=== PATIENT | male | born 1970 | race Caucasian/White ===

== ENCOUNTER 2017-07-29 18:37 | Emergency (ER) | payer OTHER ==
[2017-07-29] MEDS ORDERED: Dextrose 50% Abboject 50 ML SYRINGE ONE (18:50)
[2017-07-29 19:23] LABS: Hematocrit 47.6 % (42.0-52.0); Mean Platelet Volume 6.1 fL (7.4-10.4); Red Blood Cell (RBC) Count 4.85 mill/uL (4.70-6.10); White Blood Cell (WBC) Count 5.6 thou/uL (4.8-10.8)
[2017-07-29 19:39] LABS: ALT (SGPT) 18 U/L (8-55); AST (SGOT) 16 U/L (5-34); Alkaline Phosphatase 100 U/L (40-150); Anion Gap 15 mmol/L (10-20); BUN (Urea Nitrogen) 9 mg/dL (8.9-20.6); Bilirubin, Total 0.2 mg/dL (0.2-1.2); Calc. Creatinine Clearance 0 mL/min (70-130); Calcium 10.1 mg/dL (7.8-10.44); Carbon Dioxide 28 mmol/L (22-29); Chloride 103 mmol/L (98-107); Estimated GFR-MDRD Greater than 90; Globulin 3.1 g/dL (2.4-3.5); Protein, Total 7.7 g/dL (6.0-8.3)
[2017-07-29 19:43] LABS: Band 2 % (5-11); Neutrophil 70 % (42-75); Reactive Lymphocytes 2 % (0-10)
[2017-07-29] MEDS ORDERED: Hyaluronidase, Ovine 200 UNITS/ML VIAL SC SCH (20:30)
== END 2017-07-29 21:48 | disposition home or self-care (01) ==
LOC: ERS 18:37
DX: E10.649 Type 1 diabetes mellitus with hypoglycemia without coma (principal); T80.89XA Other complications following infusion, transfusion and therapeutic injection, initial encounter; E78.5 Hyperlipidemia, unspecified; I10 Essential (primary) hypertension
CPT/HCPCS: 36416; 80053; 85025; 93005; 96372; 96374; J3471

== ENCOUNTER 2022-08-09 20:02 | Emergency (ER) | payer OTHER ==
[2022-08-09 20:58] LABS: #Basophils 0.1 thou/uL (0.0-0.2); #Eosinphils 0.1 thou/uL (0.0-0.7); #Lymphocytes 1.3 thou/uL (1.20-3.40); #Monocytes 0.3 thou/uL (0.11-0.59); #Neutrophils 6.7 thou/uL (1.40-6.50); %Basophils 0.9 % (0.0-1.0); %Eosinophils 0.8 % (0.0-10.0); %Lymphocytes 15.8 % (21.0-51.0); %Monocytes 3.3 % (0.0-10.0); %Neutrophils 79.2 % (42.0-75.0); Hemoglobin 14.1 g/dL (14.0-18.0); Mean Corpuscular HGB CONC 34.7 g/dL (32.0-36.0); Mean Corpuscular Hemoglobin 34.3 pg (27.0-31.0); Mean Corpuscular Volume 98.7 fL (78.0-98.0); Mean Platelet Volume 6.9 fL (7.4-10.4); Platelet Count 208 thou/uL (130-400); Red Blood Cell (RBC) Count 4.11 mill/uL (4.70-6.10); White Blood Cell (WBC) Count 8.4 thou/uL (4.8-10.8)
[2022-08-09 22:07] LABS: ALT (SGPT) 16 U/L (8-55); AST (SGOT) 12 U/L (5-34); Albumin 4.5 g/dL (3.5-5.0); Alkaline Phosphatase 181 U/L (40-110); Anion Gap 14 mmol/L (10-20); BUN (Urea Nitrogen) 10 mg/dL (8.9-20.6); Bilirubin, Total 0.3 mg/dL (0.2-1.2); Calc. Creatinine Clearance 0 mL/min (70-130); Calcium 9.8 mg/dL (7.8-10.44); Carbon Dioxide 27 mmol/L (22-29); Chloride 99 mmol/L (98-107); Estimated GFR 91; Globulin 2.7 g/dL (2.4-3.5); Glucose 234 mg/dL (70-105); Protein, Total 7.2 g/dL (6.0-8.3); Sodium 136 mmol/L (136-145)
== END 2022-08-09 21:23 | disposition home or self-care (01) ==
LOC: ERS 20:02
DX: E10.649 Type 1 diabetes mellitus with hypoglycemia without coma (principal); I10 Essential (primary) hypertension; E78.5 Hyperlipidemia, unspecified
CPT/HCPCS: 36415; 36416; 80053; 85025; 93005

== ENCOUNTER 2023-07-02 13:16 | Inpatient (IN) | payer SELFPAY ==
[2023-07-02 14:07] LABS: #Monocytes 0.6 thou/uL (0.11-0.59); #Neutrophils 10.7 thou/uL (1.40-6.50); %Basophils 0.1 % (0.0-1.0); %Lymphocytes 10.2 % (21.0-51.0); %Monocytes 4.5 % (0.0-10.0); %Neutrophils 84.3 % (42.0-75.0); Hematocrit 44.5 % (42.0-52.0); Hemoglobin 14.9 g/dL (14.0-18.0); Mean Corpuscular HGB CONC 33.5 g/dL (32.0-36.0); Mean Corpuscular Hemoglobin 34.5 pg (27.0-31.0); Mean Platelet Volume 10.4 fL (7.4-10.4); Platelet Count 226 10x3/uL (130-400); RBC Distribution Width 12.4 % (11.5-14.5); Red Blood Cell (RBC) Count 4.32 mill/uL (4.70-6.10); White Blood Cell (WBC) Count 12.6 10x3/uL (4.8-10.8)
[2023-07-02 14:23] LABS: ALT (SGPT) 583 U/L (8-55); AST (SGOT) 971 U/L (5-34); Albumin 4.4 g/dL (3.5-5.0); Alkaline Phosphatase 309 U/L (40-110); Anion Gap 35 mmol/L (10-20); BUN (Urea Nitrogen) 38 mg/dL (8.9-20.6); Bilirubin, Total 6.2 mg/dL (0.2-1.2); Calc. Creatinine Clearance 0 mL/min (70-130); Calcium 9.1 mg/dL (7.8-10.44); Carbon Dioxide 11 mmol/L (22-29); Chloride 77 mmol/L (98-107); Estimated GFR 27; Globulin 2.9 g/dL (2.4-3.5); Magnesium 2.3 mg/dL (1.6-2.6); Protein, Total 7.3 g/dL (6.0-8.3)
[2023-07-02 14:35] LABS: Glucose 1084 mg/dL (70-105); Potassium 7.4 mmol/L (3.5-5.1); Sodium 116 mmol/L (136-145)
[2023-07-02] MEDS ORDERED: INSULIN REGULAR IN 0.9 % NACL 100 UNITS/100 ML BAG ONE (14:36)
[2023-07-02] MEDS ORDERED: Calcium Chloride 1 GM/10 ML Abboject SYRINGE ONE ×2 (14:36→14:45)
[2023-07-02] MEDS ORDERED: Insulin Regular 300 UNITS/3 ML VIAL ONE (14:36)
[2023-07-02] MEDS ORDERED: CALCIUM GLUC 1 GM/NS 50 ML BAG ONE (14:45)
[2023-07-02] MEDS ORDERED: Sodium Bicarb 50 MEQ/50 ML Abboject 8.4% SYRINGE ONE (14:46)
[2023-07-02 14:51] LABS: Troponin I 92.089 ng/mL (< 0.028)
[2023-07-02 14:59] LABS: Lipase 10 U/L (8-78); Phosphorus 8.6 mg/dL (2.3-4.7)
[2023-07-02] MEDS ORDERED: Heparin 25,000 units/D5W 500 ML ONE (15:04)
[2023-07-02 15:08] LABS: Analyzer IN Cardio ER; Base Excess -23.2 mEq/L (-2.0 to +3.0); Calcium, Ionized (venous) 1.22 mmol/L (1.16-1.32); Chloride (VBG) 86 mmol/L (98-106); Hematocrit-VBG 44 % (42.0-52.0); Sodium 126.3 mmol/L (133-146)
[2023-07-02 15:11] LABS: pH (venous) 6.973 (7.32-7.43)
[2023-07-02 15:12] LABS: Actual Bicarbonate (HCO3v) 7.9 mEq/L (22-28); Potassium (VBG) 6.21 mmol/L (3.70-5.30)
[2023-07-02] MEDS ORDERED: Ondansetron PF 4 MG/2 ML Vial ONE (15:34)
[2023-07-02] MEDS ORDERED: cefTRIAXone (ROCEPHIN) 2 GM VIAL ONE (15:34)
[2023-07-02] MEDS ORDERED: Doxycycline 100 MG in Sodium Chloride 0.9% 100 ML IVPB SCH (15:45)
[2023-07-02 16:02] LABS: Potassium 6.1 mmol/L (3.5-5.1)
[2023-07-02] MEDS ORDERED: Electrolyte Replacement Protocol 1 EACH IVPB ONE (16:03)
[2023-07-02] MEDS ORDERED: Sodium Chloride 0.9% 1,000 ML IV PRN ×4 (16:03)
[2023-07-02] MEDS ORDERED: Dextrose 50% Abboject 50 ML SYRINGE SLOW IVP PRN (16:03)
[2023-07-02] MEDS ORDERED: NS 0.9% w/ 20 MEQ KCL 1,000 ML IV PRN ×2 (16:03)
[2023-07-02] MEDS ORDERED: Dextrose 5 %-0.45 % NaCl 1,000 ML IV PRN (16:03)
[2023-07-02] MEDS ORDERED: Sodium Bicarb 50 MEQ/50 ML Abboject 8.4% SYRINGE IVP SCH (16:15)
[2023-07-02] MEDS ORDERED: HUMULIN R 100 UNITS in Sodium Chloride 0.9% 100 ML IVPB SCH (16:15)
[2023-07-02 16:44] LABS: Bacteria/HPF None Seen HPF (None Seen); Bilirubin Negative (Negative); Blood, Urine 2+ (Negative); Clarity Clear (Clear); Glucose, Urine (Dipstick) Greater than 1000 mg/dL (Negative); Ketone, Urine 20 mg/dL (Negative); Leukocyte Negative Leu/uL (Negative); Nitrite Negative (Negative); Protein, Urine (Dipstick) 10 mg/dL (Neg-Trace); RBC/HPF None Seen HPF (0-3); Specific Gravity, Urine 1.026 (1.002-1.036); Squamous Epithelial 0-3 HPF (0-3); Urobilinogen Normal mg/dL (Less than 2); WBC/HPF 0-3 HPF (0-3)
[2023-07-02 17:20] LABS: SARS-CoV-2 NAA Rapid Test Not Detected (NotDetected)
[2023-07-02 17:24] LABS: Base Excess -16.4 mEq/L (-2.0 to +3.0); Calcium, Ionized (venous) 1.34 mmol/L (1.16-1.32); Chloride (VBG) 89 mmol/L (98-106); Hematocrit-VBG 43 % (42.0-52.0); Hemoglobin (Hb) 14.7 g/dL (13.1-17.2); Potassium (VBG) 5.63 mmol/L (3.70-5.30); Sodium 128.5 mmol/L (133-146)
[2023-07-02 17:27] LABS: pH (venous) 7.129 (7.32-7.43)
[2023-07-02] MEDS ORDERED: Sodium Bicarb 50 MEQ/50 ML VIAL ONE (17:32)
[2023-07-02 17:49] LABS: Glucose 789 mg/dL (70-105)
[2023-07-02 17:53] LABS: Anion Gap 30 mmol/L (10-20); BUN (Urea Nitrogen) 35 mg/dL (8.9-20.6); Calc. Creatinine Clearance 0 mL/min (70-130); Calcium 10.6 mg/dL (7.8-10.44); Carbon Dioxide 12 mmol/L (22-29); Chloride 89 mmol/L (98-107); Estimated GFR 29; Potassium 5.6 mmol/L (3.5-5.1); Sodium 125 mmol/L (136-145)
[2023-07-02] MEDS ORDERED: Sodium Bicarbonate 150 MEQ in Sodium Chloride 0.45% 1,000 ML IV SCH (18:00)
[2023-07-02] MEDS ORDERED: Clopidogrel Bisulfate 300 MG TAB PO SCH (18:00)
[2023-07-02 18:29] VITALS: BMI 26.2
[2023-07-02 18:34] LABS: Critical Call Chem Troponin I RESULT DECREASING
[2023-07-02 19:05] VITALS: BP 116/67
[2023-07-02 20:15] LABS: Base Excess -7.9 mEq/L (-2.0 to +3.0); Calcium, Ionized (venous) 1.18 mmol/L (1.16-1.32); Chloride (VBG) 93 mmol/L (98-106); Hematocrit-VBG 41 % (42.0-52.0); Hemoglobin (Hb) 14.1 g/dL (13.1-17.2); Sodium 130.1 mmol/L (133-146)
[2023-07-02] MEDS ORDERED: Heparin 25,000 units/D5W 500 ML IV SCH (20:15)
[2023-07-02] MEDS ORDERED: Heparin 10,000 UNITS/ 10 ML VIAL SLOW IVP SCH (20:15)
[2023-07-02 20:55] LABS: Anion Gap 25 mmol/L (10-20); BUN (Urea Nitrogen) 33 mg/dL (8.9-20.6); CK (CPK) 2026 U/L (30-200); Calc. Creatinine Clearance 46 mL/min (70-130); Carbon Dioxide 16 mmol/L (22-29); Chloride 93 mmol/L (98-107); Estimated GFR 36; Potassium 5.2 mmol/L (3.5-5.1); Sodium 129 mmol/L (136-145)
[2023-07-02 21:00] LABS: Glucose 648 mg/dL (70-105)
[2023-07-02 21:26] LABS: Troponin I 79.147 ng/mL (< 0.028)
[2023-07-02] MEDS: Atorvastatin Calcium 40 MG TAB PO SCH (22:57)
[2023-07-02] MEDS: Pantoprazole 40 MG VIAL IVP SCH (23:00)
[2023-07-03 01:35] LABS: Anion Gap 17 mmol/L (10-20); BUN (Urea Nitrogen) 32 mg/dL (8.9-20.6); Calc. Creatinine Clearance 59 mL/min (70-130); Carbon Dioxide 20 mmol/L (22-29); Chloride 98 mmol/L (98-107); Estimated GFR 48; Potassium 4.8 mmol/L (3.5-5.1); Sodium 130 mmol/L (136-145)
[2023-07-03 01:40] LABS: Critical Call Chemistry ICU.RH3@0140; Glucose 417 mg/dL (70-105)
[2023-07-03 03:54] LABS: #Monocytes 0.4 thou/uL (0.11-0.59); #Neutrophils 6.4 thou/uL (1.40-6.50); %Basophils 0.2 % (0.0-1.0); %Eosinophils 0.2 % (0.0-10.0); %Neutrophils 71.4 % (42.0-75.0); Mean Corpuscular HGB CONC 35.3 g/dL (32.0-36.0); Mean Corpuscular Hemoglobin 34.7 pg (27.0-31.0); Mean Platelet Volume 10.4 fL (7.4-10.4); Platelet Count 142 10x3/uL (130-400); RBC Distribution Width 12.3 % (11.5-14.5); Red Blood Cell (RBC) Count 3.37 mill/uL (4.70-6.10)
[2023-07-03 03:58] LABS: Hemoglobin 11.7 g/dL (14.0-18.0)
[2023-07-03 03:59] LABS: Hematocrit 33.1 % (42.0-52.0); Mean Corpuscular Volume 98.2 fl (78.0-98.0)
[2023-07-03 04:12] LABS: CK (CPK) 1566 U/L (30-200); Phosphorus 3.4 mg/dL (2.3-4.7)
[2023-07-03 04:25] LABS: ALT (SGPT) 1617 U/L (8-55); AST (SGOT) 2139 U/L (5-34); Albumin 3.2 g/dL (3.5-5.0); Alkaline Phosphatase 213 U/L (40-110); Anion Gap 17 mmol/L (10-20); BUN (Urea Nitrogen) 27 mg/dL (8.9-20.6); Bilirubin, Total 0.9 mg/dL (0.2-1.2); Calc. Creatinine Clearance 63 mL/min (70-130); Calcium 8.8 mg/dL (7.8-10.44); Carbon Dioxide 19 mmol/L (22-29); Cardiac Risk 2.6 (Less than 4.5); Chloride 102 mmol/L (98-107); Cholesterol 82 mg/dl (< 200 Desired); Estimated GFR 52; Glucose 289 mg/dL (70-105); HDL Cholesterol 32 mg/dL (>60 Neg Risk); LDL Cholesterol, Calculated 37 mg/dL; Magnesium 1.9 mg/dL (1.6-2.6); Potassium 4.5 mmol/L (3.5-5.1); Protein, Total 5.2 g/dL (6.0-8.3); Sodium 133 mmol/L (136-145); Triglycerides 63 mg/dL (Less than 150)
[2023-07-03 04:51] LABS: Troponin I 79.828 ng/mL (< 0.028)
[2023-07-03] MEDS: D5 1/2 NS w/20 mEq KCL 1,000 ML IV PRN ×3 (05:24→13:50)
[2023-07-03] MEDS: Clopidogrel Bisulfate 75 MG TAB PO SCH (08:55)
[2023-07-03] MEDS: Pantoprazole 40 MG VIAL IVP SCH ×2 (08:55→20:46)
[2023-07-03 09:06] LABS: Troponin I Greater than 45.000 ng/mL (< 0.028)
[2023-07-03 10:05] LABS: Anion Gap 18 mmol/L (10-20); BUN (Urea Nitrogen) 24 mg/dL (8.9-20.6); Calc. Creatinine Clearance 75 mL/min (70-130); Calcium 8.8 mg/dL (7.8-10.44); Carbon Dioxide 19 mmol/L (22-29); Chloride 104 mmol/L (98-107); Estimated GFR 65; Glucose 194 mg/dL (70-105); Potassium 4.2 mmol/L (3.5-5.1); Sodium 137 mmol/L (136-145)
[2023-07-03] MEDS ORDERED: Acetaminophen 325 MG TAB PO PRN (11:26)
[2023-07-03 14:26] LABS: Anion Gap 13 mmol/L (10-20); BUN (Urea Nitrogen) 20 mg/dL (8.9-20.6); Calc. Creatinine Clearance 89 mL/min (70-130); Calcium 8.6 mg/dL (7.8-10.44); Carbon Dioxide 24 mmol/L (22-29); Chloride 101 mmol/L (98-107); Estimated GFR 79; Glucose 181 mg/dL (70-105); Potassium 3.9 mmol/L (3.5-5.1); Sodium 134 mmol/L (136-145)
[2023-07-03] MEDS ORDERED: Glucagon 1 MG/ML KIT IM PRN (14:39)
[2023-07-03] MEDS ORDERED: Dextrose 5% in Water 1,000 ML IV PRN (14:39)
[2023-07-03] MEDS ORDERED: Dextrose 50% Abboject 50 ML SYRINGE SLOW IVP PRN (14:39)
[2023-07-03] MEDS: Dextrose 5 % And 0.9 % NaCl 1,000 ML IV SCH (15:00)
[2023-07-03] MEDS: cefTRIAXone\\ROCEPHIN 1 GM in Sodium Chloride 0.9% 100 ML IVPB SCH (16:09)
[2023-07-03] MEDS: HumaLOG 300 UNITS/3 ML VIAL SC PRN (16:12)
[2023-07-03 17:34] LABS: Anion Gap 12 mmol/L (10-20); BUN (Urea Nitrogen) 18 mg/dL (8.9-20.6); Calc. Creatinine Clearance 104 mL/min (70-130); Calcium 8.4 mg/dL (7.8-10.44); Carbon Dioxide 20 mmol/L (22-29); Chloride 106 mmol/L (98-107); Estimated GFR 95; Glucose 175 mg/dL (70-105); Potassium 4.2 mmol/L (3.5-5.1); Sodium 134 mmol/L (136-145)
[2023-07-03] MEDS: Atorvastatin Calcium 40 MG TAB PO SCH (20:45)
[2023-07-03] MEDS: traMADol HCl 50 MG TAB PO PRN (20:45)
[2023-07-03] MEDS ORDERED: Insulin Glargine 30 UNITS/0.3 ML VIAL SC SCH (21:00)
[2023-07-04] MEDS: Dextrose 5 % And 0.9 % NaCl 1,000 ML IV SCH (05:41)
[2023-07-04] MEDS: Clopidogrel Bisulfate 75 MG TAB PO SCH (08:14)
[2023-07-04] MEDS: traMADol HCl 50 MG TAB PO PRN (08:14)
[2023-07-04] MEDS: Pantoprazole 40 MG VIAL IVP SCH ×2 (08:15→22:21)
[2023-07-04 08:18] LABS: #Monocytes 0.1 thou/uL (0.11-0.59); %Basophils 0.3 % (0.0-1.0); %Eosinophils 0.3 % (0.0-10.0); %Lymphocytes 20.6 % (21.0-51.0); %Monocytes 2.1 % (0.0-10.0); %Neutrophils 76.2 % (42.0-75.0); Hematocrit 33.3 % (42.0-52.0); Hemoglobin 11.9 g/dL (14.0-18.0); Mean Corpuscular HGB CONC 35.7 g/dL (32.0-36.0); Mean Corpuscular Hemoglobin 35.4 pg (27.0-31.0); Mean Corpuscular Volume 99.1 fl (78.0-98.0); Mean Platelet Volume 10.9 fL (7.4-10.4); RBC Distribution Width 12.8 % (11.5-14.5); Red Blood Cell (RBC) Count 3.36 mill/uL (4.70-6.10); White Blood Cell (WBC) Count 6.6 10x3/uL (4.8-10.8)
[2023-07-04 08:34] LABS: ALT (SGPT) 3079 U/L (8-55); AST (SGOT) 2603 U/L (5-34); Albumin 3.1 g/dL (3.5-5.0); Alkaline Phosphatase 207 U/L (40-110); Anion Gap 15 mmol/L (10-20); BUN (Urea Nitrogen) 14 mg/dL (8.9-20.6); Bilirubin, Total 1.2 mg/dL (0.2-1.2); Calc. Creatinine Clearance 89 mL/min (70-130); Calcium 8.5 mg/dL (7.8-10.44); Carbon Dioxide 21 mmol/L (22-29); Chloride 101 mmol/L (98-107); Estimated GFR 79; Globulin 2.1 g/dL (2.4-3.5); Glucose 270 mg/dL (70-105); Magnesium 1.5 mg/dL (1.6-2.6); Potassium 4.2 mmol/L (3.5-5.1); Protein, Total 5.2 g/dL (6.0-8.3); Sodium 133 mmol/L (136-145)
[2023-07-04 08:35] LABS: Phosphorus 1.5 mg/dL (2.3-4.7)
[2023-07-04 08:44] LABS: Platelet Count 119 10x3/uL (130-400)
[2023-07-04 08:48] LABS: PTT 236.3 sec (22.9-36.1)
[2023-07-04] MEDS ORDERED: Iopamidol 370 76% 100 ML VIAL ONE (08:55)
[2023-07-04 08:58] LABS: Hemoglobin A1c 7.4 % (4.0-6.0)
[2023-07-04 09:25] LABS: HBCM Index 0.06 S/CO (0-0.79); HBSAg Index 0.33 S/CO (0-0.99); Hep A IgM AB Non-Reactive S/CO (NonReactive); Hep A IgM S/CO 0.17 S/CO (0-0.79); Hep B Surf Ag Non-Reactive S/CO (NonReactive); Hep C IgG Ab Non-Reactive S/CO (NonReactive); Hep C Index 0.08 S/CO (0-0.79); Hepatitis B Core IgM Abs Non-Reactive S/CO (NonReactive)
[2023-07-04] MEDS ORDERED: Furosemide 40 MG/4 ML VIAL SLOW IVP SCH ×2 (10:15→14:00)
[2023-07-04] MEDS ORDERED: Electrolyte Replacement Protocol 1 EACH FS SCH (10:15)
[2023-07-04] MEDS: PHOS-NAK 1 PKT PACK PO SCH ×3 (10:28→22:35)
[2023-07-04] MEDS ORDERED: Electrolyte Replacement Protocol FS PRN (10:30)
[2023-07-04] MEDS ORDERED: Magnesium 2 GM/50 ML(in water) 2 GM in Premix Bag 1 BAG IVPB SCH (10:30)
[2023-07-04] MEDS: HumaLOG 300 UNITS/3 ML VIAL SC PRN ×3 (11:15→22:42)
[2023-07-04] MEDS ORDERED: Spironolactone 25 MG TAB PO SCH (13:15)
[2023-07-04] MEDS ORDERED: Sacubitril 24MG/Valsartan 26 MG TAB PO SCH ×2 (14:15→21:00)
[2023-07-04] MEDS: cefTRIAXone\\ROCEPHIN 1 GM in Sodium Chloride 0.9% 100 ML IVPB SCH (16:46)
[2023-07-04] MEDS ORDERED: DOPamine 400 MG/D5W 250 ML 250 ML ONE (17:04)
[2023-07-04] MEDS ORDERED: Atropine Sulfate 1 mg/10 ml Syringe ONE ×2 (17:15→17:22)
[2023-07-04] MEDS ORDERED: NOREPINEPHRINE 8 MG/250 ML-D5W 250 ML ONE (17:26)
[2023-07-04 17:30] LABS: Actual Bicarbonate (HCO3a) 15.7 mEq/L (22-28); CO2 Tension 24.8 mmHg (35.0-45.0); Calcium, Ionized (arterial) 1.11 mmol/L (1.12-1.30); Carboxyhemoglobin (COHb) 0.4 gm% (0.0-3.0); Hematocrit-ABG 39 % (42.0-52.0); Hemoglobin (Hb) 13.2 g/dL (14.0-18.0)
[2023-07-04 17:31] LABS: O2 Tension (PaO2), arterial 46.8 mmHg (80.0-100.0); Puncture Site LBA
[2023-07-04] MEDS ORDERED: Rocuronium Bromide 10 MG/ML (10ML VIAL) IVP SCH (17:45)
[2023-07-04] MEDS ORDERED: fentaNYL 50 mcg/mL 1 mL Vial SLOW IVP SCH (17:45)
[2023-07-04] MEDS ORDERED: Propofol 1,000 MG/100 ML VIAL IV ONE (18:10)
[2023-07-04 18:12] LABS: Actual Bicarbonate (HCO3a) 15.4 mEq/L (22-28); CO2 Tension 32.7 mmHg (35.0-45.0); Calcium, Ionized (arterial) 1.14 mmol/L (1.12-1.30); Carboxyhemoglobin (COHb) 0.4 gm% (0.0-3.0); Hematocrit-ABG 42 % (42.0-52.0); Hemoglobin (Hb) 14.3 g/dL (14.0-18.0); O2 Tension (PaO2), arterial 82.8 mmHg (80.0-100.0); Potassium - ABG Lab 4.44 mmol/L (3.70-5.30)
[2023-07-04 18:14] LABS: Puncture Site LFA
[2023-07-04 18:15] LABS: ALV-art Gradient 589.325 mmHg (0-20)
[2023-07-04] MEDS ORDERED: Fentanyl CADD 100 ML IV SCH (18:15)
[2023-07-04] MEDS ORDERED: Morphine 2 MG/ML VIAL SLOW IVP PRN (18:15)
[2023-07-04] MEDS ORDERED: Fentanyl BOLUS 250 ML IVPB PRN (18:15)
[2023-07-04] MEDS ORDERED: Lorazepam 2 MG/ML VIAL SLOW IVP PRN ×2 (18:15→23:40)
[2023-07-04] MEDS ORDERED: Propofol BOLUS 1,000 MG/100 ML VIAL IV PRN (18:15)
[2023-07-04] MEDS ORDERED: Propofol 1,000 MG/100 ML VIAL IV PRN (18:15)
[2023-07-04] MEDS ORDERED: DISCONTINUE PREVIOUS NARCOTIC PAIN MEDICATIONS AND BENZODIAZEPINES FS SCH (18:15)
[2023-07-04] MEDS ORDERED: Rocuronium Bromide 10 MG/ML (10ML VIAL) ONE (18:20)
[2023-07-04 18:29] LABS: Actual Bicarbonate (HCO3a) 15.4 mEq/L (22-28); CO2 Tension 32.7 mmHg (35.0-45.0); Calcium, Ionized (arterial) 1.14 mmol/L (1.12-1.30); Carboxyhemoglobin (COHb) 0.4 gm% (0.0-3.0); Hematocrit-ABG 42 % (42.0-52.0); Hemoglobin (Hb) 14.3 g/dL (14.0-18.0); O2 Tension (PaO2), arterial 82.8 mmHg (80.0-100.0); Puncture Site RRA
[2023-07-04 18:30] LABS: ALV-art Gradient 589.325 mmHg (0-20)
[2023-07-04] MEDS ORDERED: fentaNYL 50 mcg/mL 1 mL Vial ONE (18:54)
[2023-07-04] MEDS ORDERED: Midazolam HCl 2 mg/2 ml Vial ONE (18:55)
[2023-07-04] MEDS ORDERED: Heparin 25,000 units/D5W 500 ML ONE (19:53)
[2023-07-04] MEDS ORDERED: Heparin 10,000 UNITS/ 10 ML VIAL ONE (20:14)
[2023-07-04] MEDS ORDERED: Lidocaine 1% (PF) 30 ML VIAL ONE (20:15)
[2023-07-04] MEDS ORDERED: Insulin Glargine 30 UNITS/0.3 ML VIAL SC SCH (21:00)
[2023-07-04] MEDS ORDERED: Furosemide 40 MG/4 ML VIAL ONE (21:02)
[2023-07-04] MEDS ORDERED: NOREPINEPHRINE 8 MG/250 ML-D5W 250 ML IVPB SCH (22:00)
[2023-07-04] MEDS ORDERED: DOPamine 400 MG/D5W 250 ML 250 ML IVPB SCH (22:00)
[2023-07-04 22:03] LABS: #Monocytes 0.4 thou/uL (0.11-0.59); %Basophils 0.3 % (0.0-1.0); %Eosinophils 0.2 % (0.0-10.0); %Lymphocytes 10.8 % (21.0-51.0); %Monocytes 3.4 % (0.0-10.0); %Neutrophils 84.6 % (42.0-75.0); Hematocrit 36.2 % (42.0-52.0); Hemoglobin 12.7 g/dL (14.0-18.0); Mean Corpuscular HGB CONC 35.1 g/dL (32.0-36.0); Mean Corpuscular Hemoglobin 34.8 pg (27.0-31.0); Mean Corpuscular Volume 99.2 fl (78.0-98.0); Mean Platelet Volume 10.8 fL (7.4-10.4); Platelet Count 147 10x3/uL (130-400); RBC Distribution Width 12.8 % (11.5-14.5); Red Blood Cell (RBC) Count 3.65 mill/uL (4.70-6.10)
[2023-07-04] MEDS ORDERED: Heparin 25,000 units/D5W 500 ML IV SCH (22:15)
[2023-07-04] MEDS ORDERED: Heparin 10,000 UNITS/ 10 ML VIAL SLOW IVP SCH (22:15)
[2023-07-04] MEDS ORDERED: Sodium Bicarb 50 MEQ/50 ML VIAL IVP SCH (22:15)
[2023-07-04 22:31] VITALS: TEMP 99.7
[2023-07-04 22:40] LABS: Lactic Acid 5.5 mmol/L (0.5-2.2)
[2023-07-04 22:41] LABS: Albumin 3.3 g/dL (3.5-5.0); Anion Gap 24 mmol/L (10-20); BUN (Urea Nitrogen) 17 mg/dL (8.9-20.6); Calc. Creatinine Clearance 50 mL/min (70-130); Calcium 8.1 mg/dL (7.8-10.44); Carbon Dioxide 13 mmol/L (22-29); Chloride 94 mmol/L (98-107); Estimated GFR 39; Glucose 464 mg/dL (70-105); Potassium 5.3 mmol/L (3.5-5.1); Protein, Total 5.4 g/dL (6.0-8.3); Sodium 126 mmol/L (136-145)
[2023-07-04 22:42] LABS: ALT (SGPT) 2505 U/L (8-55); AST (SGOT) 1156 U/L (5-34); Alkaline Phosphatase 234 U/L (40-110); Globulin 2.1 g/dL (2.4-3.5)
[2023-07-04] MEDS ORDERED: Morphine 4 MG/ML VIAL ONE (23:37)
[2023-07-04] MEDS ORDERED: Morphine 4 MG/ML VIAL SLOW IVP PRN (23:44)
[2023-07-05] MEDS: PHOS-NAK 1 PKT PACK PO SCH (00:05)
[2023-07-05] MEDS ORDERED: Furosemide 40 MG/4 ML VIAL SLOW IVP SCH (06:00)
[2023-07-05] MEDS ORDERED: Spironolactone 25 MG TAB PO SCH (09:00)
[2023-07-05] MEDS ORDERED: Aspirin Chewable 81 MG TAB PO SCH (09:00)
[2023-07-05] MEDS ORDERED: Atorvastatin Calcium 40 MG TAB PO SCH (09:00)
[2023-07-06 10:53] LABS: Actual Bicarbonate (HCO3v) 11.9 mEq/L (22-28)
== END 2023-07-05 00:34 | disposition expired | DRG 270 ==
LOC: ERS 13:16 → ERHOLD 15:40 → CCU 19:24
PROVIDERS: ADMIT Internal Medicine; ATTEND Family Medicine
PROC: 4A043R1 Measurement of Venous Saturation, Peripheral, Percutaneous Approach (ICD-10-PCS; 2023-07-02)
PROC: 02H633Z Insertion of Infusion Device into Right Atrium, Percutaneous Approach (ICD-10-PCS; principal; 2023-07-04)
PROC: 5A02210 Assistance with Cardiac Output using Balloon Pump, Continuous (ICD-10-PCS; 2023-07-04)
PROC: 0BH17EZ Insertion of Endotracheal Airway into Trachea, Via Natural or Artificial Opening (ICD-10-PCS; 2023-07-04)
PROC: 5A1223Z Performance of Cardiac Pacing, Continuous (ICD-10-PCS; 2023-07-04)
PROC: 4A133R1 Monitoring of Arterial Saturation, Peripheral, Percutaneous Approach (ICD-10-PCS; 2023-07-04)
PROC: 5A0935A Assistance with Respiratory Ventilation, Less than 24 Consecutive Hours, High Flow/Velocity Cannula (ICD-10-PCS; 2023-07-04)
PROC: 3E043XZ Introduction of Vasopressor into Central Vein, Percutaneous Approach (ICD-10-PCS; 2023-07-04)
PROC: 5A1935Z Respiratory Ventilation, Less than 24 Consecutive Hours (ICD-10-PCS; 2023-07-04)
PROC: 4A023N7 Measurement of Cardiac Sampling and Pressure, Left Heart, Percutaneous Approach (ICD-10-PCS; 2023-07-04)
PROC: B2111ZZ Fluoroscopy of Multiple Coronary Arteries using Low Osmolar Contrast (ICD-10-PCS; 2023-07-04)
PROC: 02HK3JZ Insertion of Pacemaker Lead into Right Ventricle, Percutaneous Approach (ICD-10-PCS; 2023-07-04)
PROC: B548ZZA Ultrasonography of Superior Vena Cava, Guidance (ICD-10-PCS; 2023-07-04)
DX: I21.19 ST elevation (STEMI) myocardial infarction involving other coronary artery of inferior wall (principal); E10.10 Type 1 diabetes mellitus with ketoacidosis without coma; G93.41 Metabolic encephalopathy; K72.00 Acute and subacute hepatic failure without coma; J96.01 Acute respiratory failure with hypoxia; I50.23 Acute on chronic systolic (congestive) heart failure; J18.9 Pneumonia, unspecified organism; I44.2 Atrioventricular block, complete; N17.9 Acute kidney failure, unspecified; I42.9 Cardiomyopathy, unspecified; I47.20 Ventricular tachycardia, unspecified; I11.0 Hypertensive heart disease with heart failure; E87.5 Hyperkalemia; R57.0 Cardiogenic shock; Z66 Do not resuscitate; D69.6 Thrombocytopenia, unspecified; D64.9 Anemia, unspecified; E83.42 Hypomagnesemia; E83.39 Other disorders of phosphorus metabolism; I25.10 Atherosclerotic heart disease of native coronary artery without angina pectoris; Z79.899 Other long term (current) drug therapy; Z79.01 Long term (current) use of anticoagulants; Z79.4 Long term (current) use of insulin; Z20.822 Contact with and (suspected) exposure to COVID-19; E78.5 Hyperlipidemia, unspecified; R00.1 Bradycardia, unspecified
CPT/HCPCS: 33210; 33967; 36415; 36416; 36600; 71045; 76705; 76770; 80048; 80053; 80061; 80074; 81001; 82010; 82550; 82805; 83036; 83605; 83690; 83735; 83880; 84100; 84145; 84443; 84484; 85025; 85347; 85730; 87040; 87086; 93005; 93010; 93306; 93454; 94002; 94640; 96361; 96365; 96366; 96368; 96375; 99152; 99153; C1769; C1887; C9113; J0461; J0613; J0696; J1265; J1644; J1815; J1940; J2001; J2060; J2250; J2270; J2405; J3010; J3475; J3480; J3490; J7042; J7050; Q9967